=== PATIENT | female | born 1955 | race Caucasian/White ===

== ENCOUNTER 2020-09-26 13:38 | Inpatient (IN) | payer OTHER ==
[~2020-09-26 13:38] MED LIST: Heparin 10,000 UNITS/ 10 ML VIAL ONE; Iopamidol 370 76% 100 ML VIAL ONE; Iopamidol 370 76% 50 ML VIAL FS ONE; Sodium Chloride 0.9% 1,000 ML BAG ONE
[2020-09-26] MEDS ORDERED: Morphine 4 MG/ML VIAL ONE (13:48)
[2020-09-26] MEDS ORDERED: Metoprolol Tartrate 5 MG/5 ML VIAL ONE (13:48)
[2020-09-26] MEDS ORDERED: Ondansetron PF 4 MG/2 ML Vial ONE ×2 (13:48→13:54)
[2020-09-26] MEDS ORDERED: Lidocaine 1% (PF) 30 ML VIAL ONE (13:58)
[2020-09-26 14:15] LABS: Hemoglobin 15.1 g/dL (12.0-16.0); Mean Corpuscular HGB CONC 33.3 g/dL (32.0-36.0); Mean Corpuscular Volume 93.2 fL (78.0-98.0); Mean Platelet Volume 8.9 fL (7.4-10.4); Platelet Count 205 thou/uL (130-400); RBC Distribution Width 12.2 % (11.5-14.5); Red Blood Cell (RBC) Count 4.87 mill/uL (4.20-5.40); White Blood Cell (WBC) Count 13.7 thou/uL (4.8-10.8)
[2020-09-26 14:21] LABS: INR-International Normal Ratio 1.1; Prothrombin Time 14.1 sec (12.0-14.7)
[2020-09-26 14:23] LABS: PTT 100.5 sec (22.9-36.1)
[2020-09-26 14:31] LABS: Band 3 % (5-11); Lymphocytes 16 % (21-51); MDiff Complete? YES; Monocytes 9 % (0-10); Neutrophil 52 % (42-75); Platelet Morphology Comment Appears Adequate; RBC Morphology Normal; Reactive Lymphocytes 20 % (0-10)
--- NOTE | 2020-09-26 14:31 | RAD ---
RADIOGRAPH CHEST 1 VIEW: DATE: 09/26/2020 HISTORY: 65-year-old female with chest pain FINDINGS: The thoracic aorta is tortuous and ectatic. There is no evidence of airspace density, pulmonary edema , or pneumothorax. The lateral costophrenic angles are not effaced. IMPRESSION: 1) No acute pulmonary findings. 2) ectasia of thoracic aorta.
[2020-09-26 14:32] LABS: ALT (SGPT) 66 U/L (8-55); AST (SGOT) 41 U/L (5-34); Albumin 3.8 g/dL (3.4-4.8); Alkaline Phosphatase 115 U/L (40-110); Anion Gap 18 mmol/L (10-20); BUN (Urea Nitrogen) 17 mg/dL (9.8-20.1); Bilirubin, Total 0.4 mg/dL (0.2-1.2); CK (CPK) 32 U/L (29-168); Calc. Creatinine Clearance 0 mL/min (70-130); Calcium 8.9 mg/dL (7.8-10.44); Carbon Dioxide 23 mmol/L (23-31); Chloride 103 mmol/L (98-107); Estimated GFR-MDRD 78; Glucose 130 mg/dL (80-115); Potassium 3.4 mmol/L (3.5-5.1); Protein, Total 6.8 g/dL (6.0-8.3); Sodium 141 mmol/L (136-145)
[2020-09-26] MEDS ORDERED: Atropine Sulfate 1 mg/10 ml Syringe ONE (14:36)
[2020-09-26] MEDS ORDERED: Heparin 10,000 UNITS/ 10 ML VIAL ONE (14:36)
[2020-09-26] MEDS ORDERED: Aggrastat 12.5 MG/250 ML 250 ML ONE (14:48)
[2020-09-26] MEDS ORDERED: Clopidogrel Bisulfate 300 MG TAB ONE (14:52)
[2020-09-26 14:53] LABS: CKMB 1.5 ng/mL (0-6.6)
[2020-09-26] MEDS ORDERED: Mag-Al 1200 mg/1200 mg/30 ML UDCUP PO PRN (15:17)
[2020-09-26] MEDS ORDERED: Nitroglycerin 0.4 MG TAB (25 Tab Bottle) SL PRN (15:17)
[2020-09-26] MEDS ORDERED: Morphine 2 MG/ML VIAL SLOW IVP PRN (15:17)
[2020-09-26] MEDS ORDERED: Electrolyte Replacement Protocol 1 EACH FS SCH (15:30)
[2020-09-26] MEDS ORDERED: Sodium Chloride 0.9% 1,000 ML IV SCH (15:30)
[2020-09-26] MEDS ORDERED: Electrolyte Replacement Protocol FS PRN (17:15)
[2020-09-26] MEDS ORDERED: Sodium Chloride 0.9% 20 ML ONE (19:08)
[2020-09-26] MEDS ORDERED: Metoprolol Tartrate 25 MG TAB PO SCH (21:00)
[2020-09-26] MEDS ORDERED: Atorvastatin Calcium 40 MG TAB PO SCH (21:00)
[2020-09-26 21:48] LABS: Troponin I 176.095 ng/mL (< 0.028)
[2020-09-26] MEDS ORDERED: Aggrastat 12.5 MG/250 ML 250 ML IVPB SCH (23:15)
[2020-09-26] MEDS ORDERED: Argatroban (Non -ESRD) 250 MG in Sodium Chloride 0.9% 250 ML 250 ML IVPB SCH (23:15)
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
[2020-09-27 03:45] LABS: #Lymphocytes 1.8 thou/uL (1.20-3.40); #Monocytes 0.6 thou/uL (0.11-0.59); #Neutrophils 10.5 thou/uL (1.40-6.50); %Basophils 0.2 % (0.0-1.0); %Lymphocytes 13.6 % (21.0-51.0); %Monocytes 4.6 % (0.0-10.0); %Neutrophils 81.6 % (42.0-75.0); Hemoglobin 14.4 g/dL (12.0-16.0); Mean Corpuscular HGB CONC 33.7 g/dL (32.0-36.0); Mean Corpuscular Hemoglobin 31.3 pg (27.0-31.0); Mean Corpuscular Volume 92.9 fL (78.0-98.0); Mean Platelet Volume 8.4 fL (7.4-10.4); Platelet Count 268 thou/uL (130-400); RBC Distribution Width 12.2 % (11.5-14.5); White Blood Cell (WBC) Count 12.9 thou/uL (4.8-10.8)
[2020-09-27 03:58] LABS: Hemoglobin A1c 5.6 % (4.0-6.0)
[2020-09-27 04:11] LABS: ALT (SGPT) 105 U/L (8-55); AST (SGOT) 280 U/L (5-34); Albumin 3.5 g/dL (3.4-4.8); Alkaline Phosphatase 101 U/L (40-110); Anion Gap 14 mmol/L (10-20); BUN (Urea Nitrogen) 13 mg/dL (9.8-20.1); Bilirubin, Total 0.4 mg/dL (0.2-1.2); Calc. Creatinine Clearance 0 mL/min (70-130); Calcium 7.9 mg/dL (7.8-10.44); Carbon Dioxide 27 mmol/L (23-31); Cardiac Risk 6.1 (Less than 4.5); Chloride 105 mmol/L (98-107); Cholesterol 236 mg/dl (< 200 Desired); Estimated GFR-MDRD 87; Globulin 2.7 g/dL (2.4-3.5); Glucose 127 mg/dL (80-115); HDL Cholesterol 39 mg/dL (>60 Neg Risk); LDL Cholesterol, Calculated 172 mg/dL; Protein, Total 6.2 g/dL (6.0-8.3); Sodium 142 mmol/L (136-145); Triglycerides 126 mg/dL (Less than 150)
[2020-09-27 04:19] LABS: CKMB 230.3 ng/mL (0-6.6); Critical Call CKMB RESULT DECREASING
[2020-09-27 04:37] LABS: Critical Call Chem Troponin I RESULT DECREASING; Troponin I 109.669 ng/mL (< 0.028)
[2020-09-27] MEDS ORDERED: Potassium Chloride 20 MEQ TAB PO SCH (04:45)
[2020-09-27] MEDS ORDERED: Clopidogrel Bisulfate 75 MG TAB ONE (09:26)
[2020-09-27] MEDS ORDERED: Lisinopril 2.5 MG TAB ONE (09:28)
[2020-09-27] MEDS ORDERED: Aspirin Chewable 81 MG TAB ONE (09:28)
[2020-09-27] MEDS: Carvedilol 6.25 MG TAB PO SCH ×2 (10:43→17:41)
[2020-09-27] MEDS: Clopidogrel Bisulfate 75 MG TAB PO SCH (10:44)
[2020-09-27] MEDS: Aspirin Chewable 81 MG TAB PO SCH (10:44)
[2020-09-27] MEDS: Lisinopril 2.5 MG TAB PO SCH (10:44)
[2020-09-27 11:27] VITALS: BMI 32.0
[2020-09-27] MEDS ORDERED: FLU VACC QS2020-21(65YR UP)/PF 240 MCG/0.7 ML SYRINGE IM ONE (12:45)
[2020-09-27 13:47] LABS: CKMB 112.6 ng/mL (0-6.6); Troponin I Greater than 45.000 ng/mL (< 0.028)
[2020-09-28 05:08] LABS: ALT (SGPT) 78 U/L (8-55); AST (SGOT) 108 U/L (5-34); Albumin 3.4 g/dL (3.4-4.8); Alkaline Phosphatase 93 U/L (40-110); Anion Gap 11 mmol/L (10-20); BUN (Urea Nitrogen) 11 mg/dL (9.8-20.1); Bilirubin, Total 0.6 mg/dL (0.2-1.2); Calc. Creatinine Clearance 128 mL/min (70-130); Calcium 8.2 mg/dL (7.8-10.44); Carbon Dioxide 27 mmol/L (23-31); Chloride 105 mmol/L (98-107); Estimated GFR-MDRD 90; Globulin 2.6 g/dL (2.4-3.5); Glucose 128 mg/dL (80-115); Sodium 139 mmol/L (136-145)
[2020-09-28] MEDS: Clopidogrel Bisulfate 75 MG TAB PO SCH (08:38)
[2020-09-28] MEDS: Carvedilol 6.25 MG TAB PO SCH ×2 (08:38→16:44)
[2020-09-28] MEDS: Aspirin Chewable 81 MG TAB PO SCH (08:38)
[2020-09-28] MEDS: Lisinopril 2.5 MG TAB PO SCH (08:39)
[2020-09-28 15:41] LABS: SARS-CoV-2 MS2 Positive; SARS-CoV-2 N Gene Negative; SARS-CoV-2 S Gene Negative; SARS-CoV-2 by NAA Not Detected (NotDetected); SARS-CoV-2 orf1ab Negative
[2020-09-28] MEDS ORDERED: Furosemide 20 MG TAB PO SCH (16:45)
[2020-09-29 05:22] LABS: ALT (SGPT) 62 U/L (8-55); AST (SGOT) 64 U/L (5-34); Albumin 3.2 g/dL (3.4-4.8); Alkaline Phosphatase 89 U/L (40-110); Anion Gap 12 mmol/L (10-20); BUN (Urea Nitrogen) 11 mg/dL (9.8-20.1); Bilirubin, Total 0.6 mg/dL (0.2-1.2); Calc. Creatinine Clearance 139 mL/min (70-130); Calcium 8.1 mg/dL (7.8-10.44); Carbon Dioxide 29 mmol/L (23-31); Chloride 104 mmol/L (98-107); Estimated GFR-MDRD Greater than 90; Globulin 2.6 g/dL (2.4-3.5); Glucose 106 mg/dL (80-115); Potassium 3.5 mmol/L (3.5-5.1); Protein, Total 5.8 g/dL (6.0-8.3); Sodium 141 mmol/L (136-145)
[2020-09-29] MEDS ORDERED: Potassium Chloride 20 MEQ TAB PO SCH (06:30)
[2020-09-29] MEDS ORDERED: Furosemide 20 MG TAB PO SCH (09:00)
[2020-09-29] MEDS: Carvedilol 6.25 MG TAB PO SCH ×2 (09:09→18:03)
[2020-09-29] MEDS: Clopidogrel Bisulfate 75 MG TAB PO SCH (09:09)
[2020-09-29] MEDS: Aspirin Chewable 81 MG TAB PO SCH (09:09)
[2020-09-29] MEDS: Lisinopril 2.5 MG TAB PO SCH (09:10)
[2020-09-30 05:39] LABS: ALT (SGPT) 62 U/L (8-55); AST (SGOT) 52 U/L (5-34); Albumin 3.2 g/dL (3.4-4.8); Alkaline Phosphatase 100 U/L (40-110); Anion Gap 11 mmol/L (10-20); BUN (Urea Nitrogen) 13 mg/dL (9.8-20.1); Bilirubin, Total 0.6 mg/dL (0.2-1.2); Calc. Creatinine Clearance 126 mL/min (70-130); Calcium 8.4 mg/dL (7.8-10.44); Carbon Dioxide 29 mmol/L (23-31); Chloride 103 mmol/L (98-107); Estimated GFR-MDRD 88; Globulin 2.6 g/dL (2.4-3.5); Glucose 101 mg/dL (80-115); Potassium 3.8 mmol/L (3.5-5.1); Protein, Total 5.8 g/dL (6.0-8.3); Sodium 139 mmol/L (136-145)
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
[2020-09-30] MEDS: Carvedilol 6.25 MG TAB PO SCH ×2 (09:11→16:01)
[2020-09-30] MEDS: Clopidogrel Bisulfate 75 MG TAB PO SCH (09:11)
[2020-09-30] MEDS: Aspirin Chewable 81 MG TAB PO SCH (09:11)
[2020-09-30] MEDS: Lisinopril 2.5 MG TAB PO SCH (09:13)
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
[2020-10-01 04:50] LABS: ALT (SGPT) 58 U/L (8-55); AST (SGOT) 40 U/L (5-34); Albumin 3.3 g/dL (3.4-4.8); Alkaline Phosphatase 103 U/L (40-110); Anion Gap 14 mmol/L (10-20); BUN (Urea Nitrogen) 12 mg/dL (9.8-20.1); Bilirubin, Total 0.6 mg/dL (0.2-1.2); Calc. Creatinine Clearance 130 mL/min (70-130); Calcium 8.5 mg/dL (7.8-10.44); Carbon Dioxide 27 mmol/L (23-31); Chloride 104 mmol/L (98-107); Estimated GFR-MDRD Greater than 90; Globulin 2.8 g/dL (2.4-3.5); Glucose 101 mg/dL (80-115); Potassium 3.8 mmol/L (3.5-5.1); Protein, Total 6.1 g/dL (6.0-8.3); Sodium 141 mmol/L (136-145)
[2020-10-01] MEDS ORDERED: Furosemide 40 MG TAB PO SCH (07:30)
--- NOTE | 2020-10-01 08:21 | EKG ---
Test Reason : Blood Pressure : / mmHG Vent. Rate : 065 BPM Atrial Rate : 065 BPM P-R Int : 168 ms QRS Dur : 082 ms QT Int : 484 ms P-R-T Axes : 040 -41 192 degrees QTc Int : 503 ms Normal sinus rhythm with sinus arrhythmia Left axis deviation Inferior infarct (cited on or before 26-SEP-2020) Anterolateral infarct (cited on or before 26-SEP-2020) Abnormal ECG Confirmed by RYLEE STARR MD ([id number]) on 10/01/2020 8:21:19 AM Referred By: REN Confirmed By:RYLEE STARR MD
[2020-10-01] MEDS ORDERED: Lisinopril 10 MG TAB PO SCH (09:00)
[2020-10-01] MEDS: Clopidogrel Bisulfate 75 MG TAB PO SCH (09:16)
[2020-10-01] MEDS: Aspirin Chewable 81 MG TAB PO SCH (09:16)
[2020-10-01] MEDS: Carvedilol 6.25 MG TAB PO SCH (09:16)
[2020-10-01 13:01] VITALS: BP 156/82; TEMP 97.9
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
[2020-10-01] MEDS ORDERED: Atorvastatin Calcium 40 MG TAB PO SCH (21:00)
--- NOTE | 2020-10-03 20:58 | EKG ---
Test Reason : Blood Pressure : / mmHG Vent. Rate : 079 BPM Atrial Rate : 092 BPM P-R Int : 000 ms QRS Dur : 148 ms QT Int : 462 ms P-R-T Axes : 000 149 -14 degrees QTc Int : 529 ms Undetermined rhythm Non-specific intra-ventricular conduction block Lateral infarct , age undetermined Inferior infarct , age undetermined Abnormal ECG No previous ECGs available Confirmed by Nikki ALMEIDA ([id number]) on 10/03/2020 8:57:56 PM Referred By: Confirmed By:Nikki ALMEIDA
--- NOTE | 2020-10-05 02:20 | EKG ---
Test Reason : Blood Pressure : / mmHG Vent. Rate : 074 BPM Atrial Rate : 074 BPM P-R Int : 156 ms QRS Dur : 080 ms QT Int : 412 ms P-R-T Axes : 044 -42 086 degrees QTc Int : 457 ms Normal sinus rhythm Left axis deviation Inferior infarct (cited on or before 26-SEP-2020) Anterior infarct (cited on or before 26-SEP-2020) T wave abnormality, consider lateral ischemia Abnormal ECG Confirmed by RYLEE STARR MD ([id number]) on 10/05/2020 2:20:25 AM Referred By: CRISTOBAL Confirmed By:RYLEE STARR MD
--- NOTE | 2020-10-09 17:50 | EKG ---
Test Reason : Blood Pressure : / mmHG Vent. Rate : 074 BPM Atrial Rate : 074 BPM P-R Int : 174 ms QRS Dur : 088 ms QT Int : 408 ms P-R-T Axes : 065 -25 058 degrees QTc Int : 452 ms Normal sinus rhythm with sinus arrhythmia Left ventricular hypertrophy with repolarization abnormality Inferior infarct , possibly acute Anterolateral injury pattern * ACUTE [place] * Consider right ventricular involvement in acute inferior infarct Abnormal ECG Confirmed by ROBERT CAMILO, NINA ([id number]), map editor JOY PROCTOR ([id number]) on 10/09/2020 5:50:38 PM Referred By: Confirmed By:NINA JONES MD
== END 2020-10-01 13:05 | disposition home or self-care (01) | DRG 247 ==
LOC: ERS 13:38 → CCL 14:18 → CCU 14:19 → 2NO 09-27 12:26
PROVIDERS: ADMIT Internal Medicine Cardiovascular Disease; ATTEND Internal Medicine Cardiovascular Disease
PROC: 027034Z Dilation of Coronary Artery, One Artery with Drug-eluting Intraluminal Device, Percutaneous Approach (ICD-10-PCS; principal; 2020-09-26)
PROC: 02C03ZZ Extirpation of Matter from Coronary Artery, One Artery, Percutaneous Approach (ICD-10-PCS; 2020-09-26)
PROC: B2111ZZ Fluoroscopy of Multiple Coronary Arteries using Low Osmolar Contrast (ICD-10-PCS; 2020-09-26)
DX: I21.09 ST elevation (STEMI) myocardial infarction involving other coronary artery of anterior wall (principal); I42.9 Cardiomyopathy, unspecified; I47.2 Ventricular tachycardia; I25.10 Atherosclerotic heart disease of native coronary artery without angina pectoris; E78.00 Pure hypercholesterolemia, unspecified; I10 Essential (primary) hypertension; K76.1 Chronic passive congestion of liver; Z20.828 Contact with and (suspected) exposure to other viral communicable diseases; K21.9 Gastro-esophageal reflux disease without esophagitis; E66.9 Obesity, unspecified; I49.3 Ventricular premature depolarization; I44.7 Left bundle-branch block, unspecified; Z89.512 Acquired absence of left leg below knee; Z87.891 Personal history of nicotine dependence; Z68.32 Body mass index [BMI] 32.0-32.9, adult; Z82.49 Family history of ischemic heart disease and other diseases of the circulatory system
CPT/HCPCS: 36415; 71045; 80053; 80061; 82550; 82553; 83036; 83880; 84484; 85025; 85347; 85610; 85730; 87635; 90471; 90662; 90732; 92928; 92973; 93005; 93010; 93306; 93454; 93798; 96365; 96374; 96375; 97139; C1757; C1874; C9600; G0008; G0009; J0461; J0883; J1644; J2001; J2270; J2405; J3246; J7050; Q9967; U0003

== ENCOUNTER 2020-11-25 10:54 | Outpatient (CLI) | payer OTHER ==
--- NOTE | 2020-11-25 13:23 | MMO ---
Bilateral MAMMO Bilat Screen [facility]. CLINICAL HISTORY: Patient is 65 years old and is seen for screening. The patient has no family history of breast cancer. The patient has no personal history of cancer. The patient has a history of right needle biopsy - benign. VIEWS: The views performed were: bilateral craniocaudal with tomosynthesis and bilateral mediolateral oblique with tomosynthesis. This study has been interpreted with the assistance of computer-aided detection. MAMMOGRAM FINDINGS: There are scattered fibroglandular densities. Righr subaerolar nodule is stable. There are no suspicious masses, suspicious calcifications, or new areas of architectural distortion. IMPRESSION: THERE IS NO MAMMOGRAPHIC EVIDENCE OF MALIGNANCY. A ROUTINE FOLLOW-UP MAMMOGRAM IN 1 YEAR IS RECOMMENDED. THE RESULTS OF THIS EXAM WERE SENT TO THE PATIENT. ACR BI-RADS Category 2 - Benign finding MAMMOGRAPHY NOTE: 1. A negative mammogram report should not delay a biopsy if a dominant of clinically suspicious mass is present. 2. Approximately 10% to 15% of breast cancers are not detected by mammography. 3. Adenosis and dense breasts may obscure an underlying neoplasm. Reported by: CONNER HERNANDEZ MD Electonically Signed: [id number]
== END 2020-11-25 10:55 | disposition home or self-care (01) ==
LOC: BICMAMMO 10:54
PROVIDERS: ATTEND Physician Assistant Medical
DX: Z12.31 Encounter for screening mammogram for malignant neoplasm of breast (principal); Z91.89 Other specified personal risk factors, not elsewhere classified
CPT/HCPCS: 77063; 77067

== ENCOUNTER 2024-12-10 02:20 | Inpatient (IN) | payer OTHER, SELFPAY ==
[2024-12-10] MEDS ORDERED: Morphine 4 MG/ML VIAL ONE (03:06)
[2024-12-10] MEDS ORDERED: Ondansetron PF 4 MG/2 ML Vial ONE ×2 (03:06→11:35)
[2024-12-10 03:08] LABS: #Basophils 0.04 10x3/uL (0.0-0.2); #Eosinophils Less than 0.03 10x3/uL (0.0-0.7); %Basophils 0.2 % (0.0-1.0); %Lymphocytes 12.1 % (21.0-51.0); %Monocytes 5.5 % (0.0-10.0); %Neutrophils 81.7 % (42.0-75.0); Hematocrit 45.7 % (36.0-47.0); Hemoglobin 15.5 g/dL (12.0-16.0); Mean Corpuscular HGB CONC 33.9 g/dL (32.0-36.0); Mean Corpuscular Hemoglobin 30.5 pg (27.0-31.0); Mean Platelet Volume 10.5 fL (7.4-10.4); Platelet Count 260 10x3/uL (130-400); RBC Distribution Width 13.1 % (11.5-14.5); Red Blood Cell (RBC) Count 5.08 mill/uL (4.20-5.40)
[2024-12-10 03:24] LABS: ALT (SGPT) 28 U/L (Less than 34); AST (SGOT) 22 U/L (11-34); Albumin 3.6 g/dL (3.1-4.5); Alkaline Phosphatase 95 U/L (40-110); Anion Gap 15 mmol/L (10-20); BUN (Urea Nitrogen) 11 mg/dL (9.8-20.1); Calc. Creatinine Clearance 0 mL/min (70-130); Calcium 8.7 mg/dL (7.8-10.44); Carbon Dioxide 28 mmol/L (23-31); Chloride 98 mmol/L (98-107); Estimated GFR 92; Globulin 3.2 g/dL (2.4-3.5); Glucose 159 mg/dL (80-115); Lipase 11 U/L (8-78); Potassium 3.9 mmol/L (3.5-5.1); Protein, Total 6.8 g/dL (5.8-8.1); Sodium 137 mmol/L (136-145)
[2024-12-10] MEDS ORDERED: Ketorolac Tromethamine 30 MG (1 mL) VIAL ONE (03:39)
[2024-12-10] MEDS ORDERED: Morphine 2 MG/ML VIAL ONE (03:39)
[2024-12-10] MEDS ORDERED: Dextrose 5% in Water 1,000 ML IV PRN ×2 (04:48→11:56)
[2024-12-10] MEDS ORDERED: Ondansetron PF 4 MG/2 ML Vial IVP PRN ×2 (04:48→11:56)
[2024-12-10] MEDS ORDERED: Glucagon 1 MG/ML KIT IM PRN ×2 (04:48→11:56)
[2024-12-10] MEDS ORDERED: Dextrose 50% Abboject 50 ML SYRINGE SLOW IVP PRN ×2 (04:48→11:56)
[2024-12-10] MEDS ORDERED: hydrALAZINE 20 MG/ML VIAL SLOW IVP PRN (04:48)
[2024-12-10] MEDS ORDERED: Ipratropium/Albuterol 3 ML NEB NEB PRN ×2 (04:48→11:56)
[2024-12-10] MEDS ORDERED: Acetaminophen 325 MG TAB PO PRN (04:48)
[2024-12-10] MEDS ORDERED: Sodium Chloride 0.9% 100 ML ONE ×2 (05:00→10:56)
[2024-12-10] MEDS ORDERED: Piperacillin/Tazobactam 3.375 GM VIAL ONE ×2 (05:00→10:56)
[2024-12-10 08:58] VITALS: BMI 31.9
[2024-12-10] MEDS: Lactated Ringer's 1,000 ML IV SCH (09:00)
[2024-12-10] MEDS: Carvedilol 6.25 MG TAB PO SCH (09:02)
[2024-12-10] MEDS ORDERED: Iopamidol-370 76% 500 ML MDV (1 ML CHARGE) ONE (09:02)
[2024-12-10] MEDS: Morphine 4 MG/ML VIAL SLOW IVP PRN (09:44)
[2024-12-10] MEDS ORDERED: Bupivacaine 0.25% HCL 30 ML VIAL ONE (10:55)
[2024-12-10] MEDS ORDERED: EPINEPHrine 1 MG/ML VIAL ONE (10:55)
[2024-12-10] MEDS ORDERED: PROPOFOL 0 ML ONE (11:05)
[2024-12-10] MEDS ORDERED: fentaNYL PF 100 MCG/2 ML SYRINGE ONE (11:05)
[2024-12-10] MEDS ORDERED: Etomidate 40 MG (20 mL) VIAL ONE (11:07)
[2024-12-10] MEDS ORDERED: Rocuronium Bromide 10 MG/ML (10ML VIAL) ONE (11:10)
[2024-12-10] MEDS ORDERED: Lidocaine 1% PF 5 ML VIAL ONE (11:10)
[2024-12-10] MEDS ORDERED: PHENYLEPHRINE-NS 100 MCG/ML 10 ML SYRINGE ONE (11:31)
[2024-12-10] MEDS ORDERED: Dexamethasone 20 MG/5 ML VIAL ONE (11:35)
[2024-12-10] MEDS ORDERED: Ondansetron HCl/PF 4 MG/2 ML Vial IVP PRN (11:41)
[2024-12-10] MEDS ORDERED: Promethazine HCl 25 MG/ML VIAL IM PRN (11:41)
[2024-12-10] MEDS ORDERED: SUGAMMADEX SODIUM 200 MG/2 ML VIAL ONE (11:48)
[2024-12-10] MEDS ORDERED: HYDROcodone/Acetaminophen 10/325 mg Tablet PO PRN (11:56)
[2024-12-10] MEDS ORDERED: Calcium Carbonate 500 MG ChewTAB PO PRN (11:56)
[2024-12-10] MEDS ORDERED: PROPOFOL 20 ML ONE (12:10)
[2024-12-10] MEDS: Piperacillin/Tazobactam 3.375 GM in Sodium Chloride 0.9% 100 ML IVPB SCH ×2 (12:26→12:33)
[2024-12-10] MEDS: Ketorolac Tromethamine 30 MG (1 mL) VIAL IVP SCH (12:46)
[2024-12-10] MEDS: D5 1/2 NS w/20 mEq KCL 1,000 ML IV SCH (13:21)
[2024-12-10] MEDS: FLU (Fluad Triv) TS24-25 (65UP)/MF59C/PF 45 MCG/0.5 ML Syringe IM ONE (13:55)
[2024-12-10] MEDS: Famotidine/PF 20 mg/2ml Vial SLOW IVP SCH (19:59)
[2024-12-10] MEDS: Famotidine 20 MG TAB PO SCH (20:03)
[2024-12-10] MEDS: Docusate 100 MG CAP PO SCH (20:03)
[2024-12-11 06:06] LABS: #Basophils Less than 0.03 10x3/uL (0.0-0.2); #Eosinophils Less than 0.03 10x3/uL (0.0-0.7); %Basophils 0.1 % (0.0-1.0); %Lymphocytes 7.2 % (21.0-51.0); %Monocytes 5.6 % (0.0-10.0); %Neutrophils 86.4 % (42.0-75.0); Hematocrit 38.7 % (36.0-47.0); Hemoglobin 12.8 g/dL (12.0-16.0); Mean Corpuscular HGB CONC 33.1 g/dL (32.0-36.0); Mean Corpuscular Volume 93.7 fL (78.0-98.0); Mean Platelet Volume 10.8 fL (7.4-10.4); Platelet Count 194 10x3/uL (130-400); RBC Distribution Width 13.7 % (11.5-14.5); Red Blood Cell (RBC) Count 4.13 mill/uL (4.20-5.40)
[2024-12-11 06:19] LABS: Anion Gap 11 mmol/L (10-20); BUN (Urea Nitrogen) 18 mg/dL (9.8-20.1); Calc. Creatinine Clearance 88 mL/min (70-130); Calcium 8.6 mg/dL (7.8-10.44); Carbon Dioxide 28 mmol/L (23-31); Chloride 102 mmol/L (98-107); Estimated GFR 68; Glucose 132 mg/dL (80-115); Potassium 4.2 mmol/L (3.5-5.1); Sodium 137 mmol/L (136-145)
[2024-12-11] MEDS: Ezetimibe 10 MG TAB PO SCH (10:34)
[2024-12-11] MEDS: Enoxaparin 40 MG (0.4 mL) SYRINGE SC SCH (10:36)
[2024-12-11] MEDS: Sacubitril 49 MG/Valsartan 51 MG TABLET PO SCH ×2 (13:04→21:25)
[2024-12-11] MEDS ORDERED: Non-Formulary Item 1 EACH (Sacubitril/Valsartan [Entresto 97 Mg-103 Mg Tablet] 1 EACH Tab PO SCH (21:00)
[2024-12-12 09:21] LABS: #Basophils Less than 0.03 10x3/uL (0.0-0.2); #Eosinophils Less than 0.03 10x3/uL (0.0-0.7); %Basophils 0.1 % (0.0-1.0); %Eosinophils 0.1 % (0.0-10.0); %Lymphocytes 11.2 % (21.0-51.0); %Monocytes 5.7 % (0.0-10.0); %Neutrophils 82.3 % (42.0-75.0); Hematocrit 35.2 % (36.0-47.0); Hemoglobin 11.8 g/dL (12.0-16.0); Mean Corpuscular HGB CONC 33.5 g/dL (32.0-36.0); Mean Corpuscular Hemoglobin 31.1 pg (27.0-31.0); Mean Corpuscular Volume 92.9 fL (78.0-98.0); Mean Platelet Volume 10.6 fL (7.4-10.4); Platelet Count 201 10x3/uL (130-400); RBC Distribution Width 13.5 % (11.5-14.5); Red Blood Cell (RBC) Count 3.79 mill/uL (4.20-5.40)
[2024-12-12 12:30] VITALS: BP 117/73; TEMP 97.4
== END 2024-12-12 16:41 | disposition home or self-care (01) | DRG 399 ==
LOC: ERS 02:20 → SURG B 04:58
PROVIDERS: ADMIT Surgery; ATTEND Surgery
PROC: 0DTJ4ZZ Resection of Appendix, Percutaneous Endoscopic Approach (ICD-10-PCS; principal; 2024-12-10)
PROC: 3E033XZ Introduction of Vasopressor into Peripheral Vein, Percutaneous Approach (ICD-10-PCS; 2024-12-10)
DX: K35.80 Unspecified acute appendicitis (principal); I50.9 Heart failure, unspecified; Z87.891 Personal history of nicotine dependence; I25.2 Old myocardial infarction; Z79.82 Long term (current) use of aspirin; Z79.899 Other long term (current) drug therapy
CPT/HCPCS: 36415; 74177; 80048; 80053; 83605; 83690; 85025; 88304; 93005; 96365; 96375; 96376; J0171; J0665; J1100; J1650; J1885; J2270; J2272; J2405; J2543; J2704; J3490; J7042; J7120; Q9967